=== PATIENT | female | born 2000 | race Caucasian/White ===

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

== ENCOUNTER 2023-09-30 15:31 | Emergency (ER) | payer MEDICAID ==
[~2023-09-30] VITALS: Ht 160 cm; Wt 61.2 kg
[2023-09-30 15:47] VITALS: BP_SYST 119; PULSE 86; RESP 18; TEMP 98.9; O2SAT 99
[2023-09-30] MEDS ORDERED: AUG875 PO (16:04)
[2023-09-30 16:15] VITALS: BP_SYST 119; PULSE 86; RESP 18; TEMP 98.9; O2SAT 99
[2023-09-30] MEDS: BACITRACIN 1 GM OINT TP ONE (16:17)
== END 2023-09-30 16:15 | disposition home or self-care (01) ==
LOC: SED 15:31
DX: S61.431A Puncture wound without foreign body of right hand, initial encounter (principal); Z79.899 Other long term (current) drug therapy; W54.0XXA Bitten by dog, initial encounter; Y93.89 Activity, other specified; Y92.89 Other specified places as the place of occurrence of the external cause; Y99.8 Other external cause status
CPT/HCPCS: 99282